=== PATIENT | male | born 1990 ===

== ENCOUNTER 2017-11-21 06:11 | Emergency (ER) | payer SELFPAY ==
[2017-11-21 06:11] VITALS: BMI 25.9
[2017-11-21 06:29] VITALS: BP 149/83; PULSE 79; TEMP 98.9; O2SAT 99
--- NOTE | 2017-11-21 06:50 | C.PDOC ---
History Of Present Illness 26 y/o male presents to ED for complaints of generalized bodyaches and flu like sx that began 4 days ago. Patient reports taking tamiflu with some improvement however he has been having increasing bodyaches and b/l leg pain since yesterday and was unable to go to work. Denies weakness, numbness, trauma , rash, or any other physical complaints. Time Seen by Provider: 11/21/17 06:31 Chief Complaint (Nursing): Lower Extremity Problem/Injury History Per: Patient History/Exam Limitations: no limitations Onset/Duration Of Symptoms: Hrs Current Symptoms Are (Timing): Still Present Recent travel outside of the [place]: No Past Medical History Reviewed: Historical Data, Nursing Documentation, Vital Signs Vital Signs: Last Vital Signs Temp 98.9 F 11/21/17 06:23 Pulse 79 11/21/17 06:23 Resp 22 11/21/17 06:23 BP 149/83 11/21/17 06:23 Pulse Ox 99 11/21/17 06:52 - Medical History PMH: No Chronic Diseases Surgical History: No Surg Hx Family History: States: Unknown Family Hx - Social History Hx Alcohol Use: Yes Hx Substance Use: No - Immunization History Hx Tetanus Toxoid Vaccination: Yes Hx Influenza Vaccination: Yes Hx Pneumococcal Vaccination: No Review Of Systems Constitutional: Positive for: Malaise, Other (myalgias). Negative for: Fever, Chills Cardiovascular: Negative for: Chest Pain Respiratory: Negative for: Cough, Shortness of Breath Gastrointestinal: Negative for: Nausea, Vomiting, Abdominal Pain, Diarrhea Musculoskeletal: Positive for: Leg Pain (Bilateral ) Skin: Negative for: Rash Neurological: Negative for: Weakness, Numbness Physical Exam - Physical Exam Appears: Well, Non-toxic, No Acute Distress Skin: Normal Color, Warm, Dry Head: Atraumatic, Normacephalic Eye(s): bilateral: Normal Inspection, PERRL, EOMI Oral Mucosa: Moist Neck: Normal ROM, Supple Chest: Symmetrical, No Deformity, No Tenderness Cardiovascular: Rhythm Regular Respiratory: Normal Breath Sounds, No Decreased Breath Sounds, No Rhonchi, No Wheezing Gastrointestinal/Abdominal: Soft, No Tenderness Extremity: Normal ROM, Tenderness (on palpation of entire LE b/l), No Pedal Edema, No Calf Tenderness, No Deformity, No Swelling, No Other (no warmth, erythema or swelling) Extremity: Bilateral: Atraumatic, Normal Color And Temperature, Normal ROM Neurological/Psych: Oriented x3 (Awake and alert), Normal Speech (Speaking in full sentences ), Normal Motor, Normal Sensation, Normal Reflexes, Other (No focal deficits ) Gait: Steady ED Course And Treatment O2 Sat by Pulse Oximetry: 99 (RA) Pulse Ox Interpretation: Normal Progress Note: Administered Motrin. 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 - Scribe Statement The provider has reviewed the documentation as recorded by the Woodyibjake Dutta All medical record entries made by the Rufina were at my direction and personally dictated by me. I have reviewed the chart and agree that the record accurately reflects my personal performance of the history, physical exam, medical decision making, and the department course for this patient. I have also personally directed, reviewed, and agree with the discharge instructions and disposition.
[2017-11-21 07:19] VITALS: RESP 18
== END 2017-11-21 07:13 | disposition home or self-care (01) ==
LOC: C.ER 06:11
DX: M79.1 Myalgia (principal)